=== PATIENT | male | born 1965 | race Caucasian/White ===

== ENCOUNTER 2016-11-27 19:53 | Emergency (ER) | payer SELFPAY ==
[~2016-11-27] VITALS: Ht 167.6 cm; Wt 84.4 kg
[2016-11-27 20:06] VITALS: BP 110/78
--- NOTE | 2016-11-27 21:40 | NUR ---
PT TAKEN TO BED 6
--- NOTE | 2016-11-27 22:32 | NUR ---
PATIENT PRESENTS TO ED DUE TO ABDOMINAL PAIN AND SOB . PT STATES IT ONLY STARTS TODAY DENIES N/V/D; SKIN IS PINK/WARM/DRY; AAOX4 WITH EVEN AND STEADY GAIT;PT DENIES ANY FEVER, CP, PATIENT STATES PAIN OF 8/10 AT THIS TIME/ABDOMEN,PATIENT POSITIONED FOR COMFORT; HOB ELEVATED; BEDRAILS UP X2; BED DOWN. ER MD MADE AWARE OF PT STATUS.PT AAO,NO VOMITTING NOTED.
--- NOTE | 2016-11-27 22:43 | NUR ---
DR. PAGE AT BEDSIDE
[2016-11-27] MEDS ORDERED: ALBUTEROL SULFATE/IPRATROPIU 3 ML SOL IH ONE (22:45)
[2016-11-27] MEDS ORDERED: predniSONE 20 MG TAB PO ONE (22:45)
--- NOTE | 2016-11-27 22:51 | NUR ---
XRAY AT BEDSIDE
--- NOTE | 2016-11-27 22:57 | NUR ---
RT AT BEDSIDE
[2016-11-27] MEDS ORDERED: ALBUTEROL 0.083% 2.5 MG/3 ML NEBU INH ONE (23:10)
--- NOTE | 2016-11-27 23:45 | NUR ---
PT C/O HEADACHE INFORMED DR. PAGE
[2016-11-27] MEDS ORDERED: ACETAMINOPHEN EXTRA STRENGTH 500 MG TAB PO ONE (23:50)
--- NOTE | 2016-11-28 00:17 | NUR ---
PER PT NO H/A AT THIS TIME AND HE FEEL BETTER
[2016-11-28 01:27] VITALS: BP 110/73
--- NOTE | 2016-11-28 01:28 | NUR ---
Patient discharged with v/s stable. Written and verbal after care instructions given and explained to parent/guardian. Parent/Guardian verbalized understanding of instructions. Ambulatory with steady gait. All questions addressed prior to discharge. ID band removed. Parent/Guardian advised to follow up with PMD. Rx of PREDNISONE 50MG DAILY given. Parent/Guardian educated on indication of medication including possible reaction and side effects. Opportunity to ask questions provided and answered.
== END 2016-11-28 01:28 | disposition home or self-care (01) ==
LOC: MED 19:53
DX: J45.901 Unspecified asthma with (acute) exacerbation (principal)
CPT/HCPCS: 71010; 94640; 99284; J7512; J7613; J7620; Q0092